=== PATIENT | male | born 1955 | race Caucasian/White ===

== ENCOUNTER 2020-09-25 13:43 | Emergency (ER) | payer MEDICARE, OTHER ==
[2020-09-25 14:36] LABS: #Eosinphils 0.1 10x3/uL (0.0-0.5); #Monocytes 0.8 10x3/uL (0.0-1.1); #Neutrophils 6.5 10x3/uL (1.5-8.4); %Basophils 0.3 % (0.0-2.0); %Eosinophils 1.3 % (0.0-6.0); %Monocytes 9.2 % (0.0-10.0); %Neutrophils 73.7 % (40.0-75.0); Hemoglobin 14.2 g/dL (13.5-17.5); Mean Corpuscular HGB CONC 34.1 g/dL (32.0-36.0); Mean Corpuscular Hemoglobin 31.1 pg (27.0-33.0); Mean Corpuscular Volume 91.2 fl (81.2-95.1); Mean Platelet Volume 11.4 fl (7.4-10.4); Platelet Count 188 10x3/uL (150-450); RBC Distribution Width 13.2 % (11.5-14.5); Red Blood Cell (RBC) Count 4.57 10x6/uL (4.32-5.72); White Blood Cell (WBC) Count 8.7 10x3/uL (3.5-10.5)
[2020-09-25] MEDS ORDERED: Ondansetron PF 4 MG/2 ML Vial ONE (14:57)
[2020-09-25] MEDS ORDERED: Morphine 1 ML ONE (14:58)
[2020-09-25 15:01] LABS: ALT (SGPT) 21 U/L (8-55); AST (SGOT) 17 U/L (5-34); Albumin 4.2 g/dL (3.4-4.8); Alkaline Phosphatase 73 U/L (40-110); Anion Gap 13 mmol/L (10-20); BUN (Urea Nitrogen) 16 mg/dL (8.4-25.7); Bilirubin, Total 0.6 mg/dL (0.2-1.2); Calc. Creatinine Clearance 0 mL/min (70-130); Calcium 9.6 mg/dL (7.8-10.44); Carbon Dioxide 26 mmol/L (23-31); Chloride 105 mmol/L (98-107); Globulin 2.2 g/dL (2.4-3.5); Glucose 146 mg/dL (80-115); Potassium 4.1 mmol/L (3.5-5.1); Protein, Total 6.4 g/dL (5.8-8.1); Sodium 140 mmol/L (136-145)
[2020-09-25 17:38] LABS: Troponin I 0.025 ng/mL (< 0.028)
[2020-09-25] MEDS ORDERED: HYDROcodone/Acetaminophen 5/325 mg Tablet ONE (18:12)
== END 2020-09-25 18:31 | disposition home or self-care (01) ==
LOC: CSHERS 13:43
DX: S09.90XA Unspecified injury of head, initial encounter (principal); M54.5 Low back pain; M79.671 Pain in right foot; I10 Essential (primary) hypertension; E78.5 Hyperlipidemia, unspecified; M10.9 Gout, unspecified; I48.91 Unspecified atrial fibrillation; Z79.01 Long term (current) use of anticoagulants; Z79.899 Other long term (current) drug therapy; W19.XXXA Unspecified fall, initial encounter
CPT/HCPCS: 70450; 71045; 72131; 80053; 82553; 84484; 85025; 93005; 96374; 96375; J2270; J2405

== ENCOUNTER 2021-02-22 14:08 | Inpatient (IN) | payer MEDICARE ==
[2021-02-22 15:04] LABS: #Eosinphils 0.1 10x3/uL (0.0-0.5); #Monocytes 0.9 10x3/uL (0.0-1.1); #Neutrophils 7.1 10x3/uL (1.5-8.4); %Basophils 0.3 % (0.0-2.0); %Eosinophils 1.1 % (0.0-6.0); %Lymphocytes 15.4 % (18.0-47.0); %Monocytes 8.9 % (0.0-10.0); %Neutrophils 73.9 % (40.0-75.0); Hemoglobin 12.8 g/dL (13.5-17.5); Mean Corpuscular HGB CONC 32.2 g/dL (32.0-36.0); Mean Corpuscular Hemoglobin 30.3 pg (27.0-33.0); Mean Corpuscular Volume 94.3 fl (81.2-95.1); Mean Platelet Volume 11.3 fl (7.4-10.4); Platelet Count 147 10x3/uL (150-450); RBC Distribution Width 14.3 % (11.5-14.5); Red Blood Cell (RBC) Count 4.22 10x6/uL (4.32-5.72); White Blood Cell (WBC) Count 9.6 10x3/uL (3.5-10.5)
[2021-02-22 15:16] LABS: ALT (SGPT) 36 U/L (8-55); AST (SGOT) 25 U/L (5-34); Alkaline Phosphatase 60 U/L (40-110); Anion Gap 14 mmol/L (10-20); BUN (Urea Nitrogen) 14 mg/dL (8.4-25.7); Bilirubin, Total 1.4 mg/dL (0.2-1.2); Calc. Creatinine Clearance 0 mL/min (70-130); Calcium 9.5 mg/dL (7.8-10.44); Carbon Dioxide 25 mmol/L (23-31); Chloride 105 mmol/L (98-107); Globulin 2.4 g/dL (2.4-3.5); Glucose 159 mg/dL (80-115); Potassium 4.2 mmol/L (3.5-5.1); Protein, Total 6.4 g/dL (5.8-8.1); Sodium 140 mmol/L (136-145)
[2021-02-22 16:20] LABS: CKMB 1.1 ng/mL (0-6.6)
[2021-02-22] MEDS ORDERED: Furosemide 100 MG/10 ML VIAL ONE (16:21)
[2021-02-22] MEDS ORDERED: Aspirin Chewable 81 MG TAB ONE (16:21)
[2021-02-22] MEDS ORDERED: Nitroglycerin 2% Ointment 1 INCH/1 GM Packet ONE (16:22)
[2021-02-22] MEDS ORDERED: Furosemide 40 MG/4 ML VIAL ONE (16:24)
[2021-02-22] MEDS ORDERED: Midodrine HCl 2.5 MG TAB PO PRN (17:18)
[2021-02-22] MEDS ORDERED: Ondansetron PF 4 MG/2 ML Vial IVP PRN (17:20)
[2021-02-22 18:11] LABS: Troponin I 0.554 ng/mL (< 0.028)
[2021-02-22 19:06] LABS: SARS-CoV-2 NAA Rapid Test Not Detected (NotDetected)
[2021-02-22 21:24] VITALS: BMI 43.3
[2021-02-22] MEDS ORDERED: Magnesium Oxide 250 MG TAB PO SCH (21:45)
[2021-02-22] MEDS ORDERED: Rosuvastatin 20 MG TAB PO SCH (21:45)
[2021-02-22] MEDS ORDERED: Metoprolol Tartrate 50 MG TAB PO SCH (21:45)
[2021-02-22] MEDS ORDERED: Apixaban 5 MG TAB PO SCH (21:45)
[2021-02-22] MEDS ORDERED: Amitriptyline HCl 10 MG TAB PO SCH (21:45)
[2021-02-22] MEDS ORDERED: Famotidine 20 MG TAB PO SCH (21:45)
[2021-02-22 21:47] LABS: Troponin I 0.453 ng/mL (< 0.028)
[2021-02-22] MEDS: Acetaminophen 325 MG TAB PO PRN (21:53)
[2021-02-23 05:18] LABS: #Eosinphils 0.2 10x3/uL (0.0-0.5); #Monocytes 0.8 10x3/uL (0.0-1.1); #Neutrophils 4.7 10x3/uL (1.5-8.4); %Basophils 0.3 % (0.0-2.0); %Eosinophils 2.6 % (0.0-6.0); %Monocytes 11.3 % (0.0-10.0); %Neutrophils 63.4 % (40.0-75.0); Hemoglobin 11.6 g/dL (13.5-17.5); Mean Corpuscular HGB CONC 32.4 g/dL (32.0-36.0); Mean Corpuscular Hemoglobin 30.3 pg (27.0-33.0); Mean Corpuscular Volume 93.5 fl (81.2-95.1); Mean Platelet Volume 11.1 fl (7.4-10.4); Platelet Count 129 10x3/uL (150-450); RBC Distribution Width 14.2 % (11.5-14.5); Red Blood Cell (RBC) Count 3.83 10x6/uL (4.32-5.72); White Blood Cell (WBC) Count 7.4 10x3/uL (3.5-10.5)
[2021-02-23 05:24] LABS: Anion Gap 12 mmol/L (10-20); BUN (Urea Nitrogen) 15 mg/dL (8.4-25.7); Calc. Creatinine Clearance 175 mL/min (70-130); Calcium 9.7 mg/dL (7.8-10.44); Carbon Dioxide 26 mmol/L (23-31); Chloride 105 mmol/L (98-107); Glucose 73 mg/dL (80-115); Potassium 3.7 mmol/L (3.5-5.1); Sodium 139 mmol/L (136-145)
[2021-02-23] MEDS: Levothyroxine Sodium 25 MCG TAB PO SCH (05:39)
[2021-02-23] MEDS: Furosemide 40 MG/4 ML VIAL SLOW IVP SCH ×2 (05:39→14:37)
[2021-02-23] MEDS: Apixaban 5 MG TAB PO SCH ×2 (09:13→21:49)
[2021-02-23] MEDS: Potassium Chloride 20 MEQ TAB PO SCH ×2 (09:13→17:25)
[2021-02-23] MEDS: Clopidogrel Bisulfate 75 MG TAB PO SCH (09:13)
[2021-02-23] MEDS: Magnesium Oxide 250 MG TAB PO SCH ×2 (09:13→21:47)
[2021-02-23] MEDS: Allopurinol 100 MG TAB PO SCH (09:13)
[2021-02-23] MEDS: Digoxin 0.125 MG TAB PO SCH (09:13)
[2021-02-23] MEDS: Ezetimibe 10 MG TAB PO SCH (09:13)
[2021-02-23] MEDS: Famotidine 20 MG TAB PO SCH ×2 (09:14→21:49)
[2021-02-23] MEDS: Metoprolol Tartrate 50 MG TAB PO SCH ×2 (09:14→21:49)
[2021-02-23] MEDS: Acetaminophen 325 MG TAB PO PRN ×2 (09:21→21:48)
[2021-02-23] MEDS: Rosuvastatin 20 MG TAB PO SCH (21:49)
[2021-02-23] MEDS: Amitriptyline HCl 10 MG TAB PO SCH (21:49)
[2021-02-24 06:18] LABS: #Eosinphils 0.3 10x3/uL (0.0-0.5); #Monocytes 0.6 10x3/uL (0.0-1.1); #Neutrophils 3.9 10x3/uL (1.5-8.4); %Basophils 0.5 % (0.0-2.0); %Eosinophils 4.1 % (0.0-6.0); %Lymphocytes 22.9 % (18.0-47.0); %Monocytes 9.7 % (0.0-10.0); %Neutrophils 62.3 % (40.0-75.0); Hemoglobin 12.8 g/dL (13.5-17.5); Mean Corpuscular HGB CONC 33.9 g/dL (32.0-36.0); Mean Corpuscular Hemoglobin 30.3 pg (27.0-33.0); Mean Corpuscular Volume 89.6 fl (81.2-95.1); Mean Platelet Volume 10.9 fl (7.4-10.4); Platelet Count 143 10x3/uL (150-450); RBC Distribution Width 14.3 % (11.5-14.5); Red Blood Cell (RBC) Count 4.22 10x6/uL (4.32-5.72); White Blood Cell (WBC) Count 6.3 10x3/uL (3.5-10.5)
[2021-02-24] MEDS: Furosemide 40 MG/4 ML VIAL SLOW IVP SCH ×2 (06:34→15:27)
[2021-02-24] MEDS: Levothyroxine Sodium 25 MCG TAB PO SCH (06:34)
[2021-02-24 06:58] LABS: Anion Gap 13 mmol/L (10-20); BUN (Urea Nitrogen) 16 mg/dL (8.4-25.7); Calc. Creatinine Clearance 162 mL/min (70-130); Calcium 9.9 mg/dL (7.8-10.44); Carbon Dioxide 26 mmol/L (23-31); Chloride 105 mmol/L (98-107); Glucose 99 mg/dL (80-115); Magnesium 2.2 mg/dL (1.6-2.6); Potassium 3.8 mmol/L (3.5-5.1); Sodium 140 mmol/L (136-145)
[2021-02-24] MEDS: Digoxin 0.125 MG TAB PO SCH (08:25)
[2021-02-24] MEDS: Potassium Chloride 20 MEQ TAB PO SCH (08:25)
[2021-02-24] MEDS: Ezetimibe 10 MG TAB PO SCH (08:25)
[2021-02-24] MEDS: Magnesium Oxide 250 MG TAB PO SCH ×2 (08:25→20:25)
[2021-02-24] MEDS: Allopurinol 100 MG TAB PO SCH (08:25)
[2021-02-24] MEDS: Famotidine 20 MG TAB PO SCH ×2 (08:25→20:25)
[2021-02-24] MEDS: Metoprolol Tartrate 50 MG TAB PO SCH ×2 (08:26→20:25)
[2021-02-24] MEDS: Clopidogrel Bisulfate 75 MG TAB PO SCH (08:26)
[2021-02-24] MEDS: Apixaban 5 MG TAB PO SCH (08:26)
[2021-02-24] MEDS ORDERED: Apixaban 2.5 MG TAB PO SCH (11:00)
[2021-02-24] MEDS ORDERED: Clopidogrel Bisulfate 75 MG TAB PO SCH (11:00)
[2021-02-24] MEDS ORDERED: Ketorolac Tromethamine 30 MG/ML VIAL IVP SCH (11:00)
[2021-02-24] MEDS: Amitriptyline HCl 10 MG TAB PO SCH (20:24)
[2021-02-24] MEDS: Apixaban 2.5 MG TAB PO SCH (20:25)
[2021-02-24] MEDS: Rosuvastatin 20 MG TAB PO SCH (20:25)
[2021-02-24] MEDS ORDERED: Apixaban 5 MG TAB PO SCH (21:00)
[2021-02-25 04:54] LABS: #Eosinphils 0.4 10x3/uL (0.0-0.5); #Monocytes 0.8 10x3/uL (0.0-1.1); #Neutrophils 5.3 10x3/uL (1.5-8.4); %Basophils 0.2 % (0.0-2.0); %Eosinophils 4.2 % (0.0-6.0); %Lymphocytes 21.9 % (18.0-47.0); %Monocytes 9.1 % (0.0-10.0); %Neutrophils 64.1 % (40.0-75.0); Hemoglobin 13.4 g/dL (13.5-17.5); Mean Corpuscular HGB CONC 32.7 g/dL (32.0-36.0); Mean Corpuscular Volume 91.7 fl (81.2-95.1); Mean Platelet Volume 10.9 fl (7.4-10.4); Platelet Count 161 10x3/uL (150-450); RBC Distribution Width 14.1 % (11.5-14.5); Red Blood Cell (RBC) Count 4.47 10x6/uL (4.32-5.72); White Blood Cell (WBC) Count 8.3 10x3/uL (3.5-10.5)
[2021-02-25 05:07] LABS: Anion Gap 14 mmol/L (10-20); BUN (Urea Nitrogen) 23 mg/dL (8.4-25.7); Calc. Creatinine Clearance 134 mL/min (70-130); Carbon Dioxide 27 mmol/L (23-31); Chloride 104 mmol/L (98-107); Glucose 104 mg/dL (80-115); Magnesium 2.3 mg/dL (1.6-2.6); Potassium 3.8 mmol/L (3.5-5.1); Sodium 141 mmol/L (136-145)
[2021-02-25] MEDS: Furosemide 40 MG/4 ML VIAL SLOW IVP SCH (06:07)
[2021-02-25] MEDS: Levothyroxine Sodium 25 MCG TAB PO SCH (06:08)
[2021-02-25] MEDS ORDERED: Clopidogrel Bisulfate 75 MG TAB PO SCH (09:00)
[2021-02-25] MEDS ORDERED: Potassium Chloride 20 MEQ TAB PO SCH (09:15)
[2021-02-25] MEDS ORDERED: Ketorolac Tromethamine 30 MG/ML VIAL IVP SCH (10:15)
[2021-02-25] MEDS: Magnesium Oxide 250 MG TAB PO SCH ×2 (11:18→20:16)
[2021-02-25] MEDS: Metoprolol Tartrate 50 MG TAB PO SCH ×2 (11:18→20:17)
[2021-02-25] MEDS: Allopurinol 100 MG TAB PO SCH (11:18)
[2021-02-25] MEDS: Apixaban 2.5 MG TAB PO SCH ×2 (11:18→20:16)
[2021-02-25] MEDS: Digoxin 0.125 MG TAB PO SCH (11:19)
[2021-02-25] MEDS: Clopidogrel Bisulfate 75 MG TAB PO SCH (11:19)
[2021-02-25] MEDS: Spironolactone 25 MG TAB PO SCH (11:19)
[2021-02-25] MEDS: Famotidine 20 MG TAB PO SCH ×2 (11:20→20:17)
[2021-02-25] MEDS: Furosemide 20 MG TAB PO SCH (13:40)
[2021-02-25] MEDS: Rosuvastatin 20 MG TAB PO SCH (20:16)
[2021-02-25] MEDS: Amitriptyline HCl 10 MG TAB PO SCH (20:17)
[2021-02-25] MEDS: Colchicine 0.6 MG TAB PO SCH (20:17)
[2021-02-26 05:26] LABS: Anion Gap 13 mmol/L (10-20); BUN (Urea Nitrogen) 26 mg/dL (8.4-25.7); Calc. Creatinine Clearance 124 mL/min (70-130); Calcium 10.1 mg/dL (7.8-10.44); Carbon Dioxide 26 mmol/L (23-31); Chloride 106 mmol/L (98-107); Glucose 105 mg/dL (80-115); Magnesium 2.5 mg/dL (1.6-2.6); Potassium 4.1 mmol/L (3.5-5.1); Sodium 141 mmol/L (136-145)
[2021-02-26 05:39] LABS: #Eosinphils 0.4 10x3/uL (0.0-0.5); #Monocytes 0.9 10x3/uL (0.0-1.1); #Neutrophils 5.2 10x3/uL (1.5-8.4); %Basophils 0.4 % (0.0-2.0); %Eosinophils 4.8 % (0.0-6.0); %Lymphocytes 22.6 % (18.0-47.0); %Monocytes 10.8 % (0.0-10.0); Hemoglobin 14.4 g/dL (13.5-17.5); Mean Corpuscular HGB CONC 32.7 g/dL (32.0-36.0); Mean Corpuscular Hemoglobin 30.1 pg (27.0-33.0); Mean Corpuscular Volume 91.9 fl (81.2-95.1); Mean Platelet Volume 10.8 fl (7.4-10.4); Platelet Count 178 10x3/uL (150-450); RBC Distribution Width 14.1 % (11.5-14.5); Red Blood Cell (RBC) Count 4.79 10x6/uL (4.32-5.72); White Blood Cell (WBC) Count 8.4 10x3/uL (3.5-10.5)
[2021-02-26] MEDS: Levothyroxine Sodium 25 MCG TAB PO SCH (06:08)
[2021-02-26] MEDS: Acetaminophen 325 MG TAB PO PRN ×2 (07:11→11:00)
[2021-02-26] MEDS: Ezetimibe 10 MG TAB PO SCH (10:21)
[2021-02-26] MEDS: Furosemide 20 MG TAB PO SCH ×2 (10:21→13:30)
[2021-02-26] MEDS: Clopidogrel Bisulfate 75 MG TAB PO SCH (10:21)
[2021-02-26] MEDS: Apixaban 2.5 MG TAB PO SCH (10:21)
[2021-02-26] MEDS: Digoxin 0.125 MG TAB PO SCH (10:21)
[2021-02-26] MEDS: Metoprolol Tartrate 50 MG TAB PO SCH ×2 (10:21→13:30)
[2021-02-26] MEDS: Famotidine 20 MG TAB PO SCH (10:22)
[2021-02-26] MEDS: Colchicine 0.6 MG TAB PO SCH (10:22)
[2021-02-26] MEDS: Spironolactone 25 MG TAB PO SCH (10:22)
[2021-02-26] MEDS: Allopurinol 100 MG TAB PO SCH (10:22)
[2021-02-26] MEDS: Magnesium Oxide 250 MG TAB PO SCH (10:23)
[2021-02-26 16:54] VITALS: BP 95/66; TEMP 98.3
[2021-02-26] MEDS ORDERED: Colchicine 0.6 MG TAB PO SCH (21:00)
== END 2021-02-26 18:09 | disposition home or self-care (01) | DRG 291 ==
LOC: CSHERS 14:08 → CSHTELE 19:48
PROVIDERS: ADMIT Family Medicine; ATTEND Internal Medicine
DX: I11.0 Hypertensive heart disease with heart failure (principal); J96.01 Acute respiratory failure with hypoxia; Z68.41 Body mass index [BMI] 40.0-44.9, adult; I50.41 Acute combined systolic (congestive) and diastolic (congestive) heart failure; E78.5 Hyperlipidemia, unspecified; E03.9 Hypothyroidism, unspecified; M10.9 Gout, unspecified; I25.10 Atherosclerotic heart disease of native coronary artery without angina pectoris; Z20.822 Contact with and (suspected) exposure to COVID-19; Z95.5 Presence of coronary angioplasty implant and graft; Z90.89 Acquired absence of other organs; Z90.49 Acquired absence of other specified parts of digestive tract; Z79.01 Long term (current) use of anticoagulants; Z79.890 Hormone replacement therapy; Z79.899 Other long term (current) drug therapy; R77.8 Other specified abnormalities of plasma proteins; I73.9 Peripheral vascular disease, unspecified; E78.2 Mixed hyperlipidemia; I48.0 Paroxysmal atrial fibrillation; G47.33 Obstructive sleep apnea (adult) (pediatric); R04.0 Epistaxis; F32.9 Major depressive disorder, single episode, unspecified; E66.01 Morbid (severe) obesity due to excess calories; I25.5 Ischemic cardiomyopathy; R19.7 Diarrhea, unspecified
CPT/HCPCS: 0240U; 36415; 71045; 80048; 80053; 82553; 83735; 83880; 84443; 84484; 85025; 93005; 93010; 93306; 94760; 96374; 97139; J1885; J1940

== ENCOUNTER 2021-11-02 22:47 | Inpatient (IN) | payer MEDICARE ==
[2021-11-02] MEDS ORDERED: Nitroglycerin 2% Ointment 1 INCH/1 GM Packet ONE (23:33)
[2021-11-02] MEDS ORDERED: Aspirin Chewable 81 MG TAB ONE (23:33)
[2021-11-02] MEDS ORDERED: Fentanyl 100 MCG/2 ML VIAL ONE (23:33)
[2021-11-03 00:33] LABS: ALT (SGPT) 39 U/L (8-55); AST (SGOT) 29 U/L (5-34); Alkaline Phosphatase 103 U/L (40-110); Anion Gap 12 mmol/L (10-20); BUN (Urea Nitrogen) 9 mg/dL (8.4-25.7); Bilirubin, Total 0.4 mg/dL (0.2-1.2); CK (CPK) 121 U/L (30-200); Calc. Creatinine Clearance 0 mL/min (70-130); Calcium 9.5 mg/dL (7.8-10.44); Carbon Dioxide 24 mmol/L (23-31); Chloride 106 mmol/L (98-107); Globulin 2.1 g/dL (2.4-3.5); Glucose 178 mg/dL (80-115); Lipase 35 U/L (8-78); Potassium 3.7 mmol/L (3.5-5.1); Protein, Total 6.1 g/dL (5.8-8.1); Sodium 138 mmol/L (136-145)
[2021-11-03 00:34] LABS: #Eosinphils 0.3 10x3/uL (0.0-0.5); #Monocytes 0.6 10x3/uL (0.0-1.1); #Neutrophils 4.5 10x3/uL (1.5-8.4); %Basophils 0.3 % (0.0-2.0); %Eosinophils 4.1 % (0.0-6.0); %Lymphocytes 23.8 % (18.0-47.0); %Monocytes 8.7 % (0.0-10.0); %Neutrophils 62.8 % (40.0-75.0); Hemoglobin 15.1 g/dL (13.5-17.5); Mean Corpuscular HGB CONC 34.1 g/dL (32.0-36.0); Mean Corpuscular Hemoglobin 30.6 pg (27.0-33.0); Mean Corpuscular Volume 89.7 fl (81.2-95.1); Mean Platelet Volume 11.2 fl (7.4-10.4); Platelet Count 159 10x3/uL (150-450); RBC Distribution Width 13.2 % (11.5-14.5); Red Blood Cell (RBC) Count 4.94 10x6/uL (4.32-5.72); White Blood Cell (WBC) Count 7.1 10x3/uL (3.5-10.5)
[2021-11-03] MEDS ORDERED: Acetaminophen 500 MG TAB ONE (00:34)
[2021-11-03 00:58] LABS: CKMB 2.5 ng/mL (0-6.6)
[2021-11-03 02:01] LABS: SARS-CoV-2 NAA Rapid Test Not Detected (NotDetected)
[2021-11-03 02:53] VITALS: BMI 42.0
[2021-11-03] MEDS ORDERED: Nitroglycerin 0.4 MG TAB (25 Tab Bottle) SL PRN (02:53)
[2021-11-03] MEDS ORDERED: Ketorolac Tromethamine 30 MG/ML VIAL IVP SCH (03:00)
[2021-11-03] MEDS ORDERED: Metoclopramide HCl 10 MG/2 ML VIAL IVP SCH (03:00)
[2021-11-03] MEDS ORDERED: diphenhydrAMINE 50 MG/ML VIAL IVP SCH (03:00)
[2021-11-03 03:58] LABS: Cardiac Risk 4.8 (Less than 4.5)
[2021-11-03 04:04] LABS: Troponin I 0.022 ng/mL (< 0.028)
[2021-11-03] MEDS: Levothyroxine Sodium 25 MCG TAB PO SCH (05:23)
[2021-11-03] MEDS ORDERED: Nitroglycerin 2% Ointment 1 INCH/1 GM Packet TOP SCH (06:00)
[2021-11-03 06:22] LABS: Troponin I 0.018 ng/mL (< 0.028)
[2021-11-03] MEDS ORDERED: ALPRAZolam 0.5 MG TAB PO PRN (08:08)
[2021-11-03] MEDS ORDERED: Pantoprazole 40 MG VIAL ONE (08:42)
[2021-11-03] MEDS: Furosemide 20 MG TAB PO SCH ×2 (08:48→15:18)
[2021-11-03] MEDS: Spironolactone 25 MG TAB PO SCH (08:48)
[2021-11-03] MEDS: Clopidogrel Bisulfate 75 MG TAB PO SCH (08:48)
[2021-11-03] MEDS: Ezetimibe 10 MG TAB PO SCH (08:49)
[2021-11-03] MEDS: Metoprolol Tartrate 50 MG TAB PO SCH ×2 (08:49→21:23)
[2021-11-03] MEDS: Allopurinol 100 MG TAB PO SCH (08:49)
[2021-11-03] MEDS: Potassium Chloride 20 MEQ TAB PO SCH (08:50)
[2021-11-03] MEDS: Digoxin 0.125 MG TAB PO SCH (08:50)
[2021-11-03] MEDS: Pantoprazole 40 MG VIAL IVP SCH ×2 (08:52→21:23)
[2021-11-03] MEDS ORDERED: Apixaban 2.5 MG TAB PO SCH (09:00)
[2021-11-03] MEDS ORDERED: Aspirin Chewable 81 MG TAB PO SCH (09:00)
[2021-11-03 11:19] LABS: Hemoglobin 14.3 g/dL (13.5-17.5)
[2021-11-03 11:57] LABS: Digoxin Less than 0.15 ng/mL (0.8-2.0)
[2021-11-03 12:26] LABS: Anion Gap 16 mmol/L (10-20); BUN (Urea Nitrogen) 10 mg/dL (8.4-25.7); Calc. Creatinine Clearance 157 mL/min (70-130); Calcium 9.3 mg/dL (7.8-10.44); Carbon Dioxide 21 mmol/L (23-31); Chloride 107 mmol/L (98-107); Glucose 172 mg/dL (80-115); Potassium 4.4 mmol/L (3.5-5.1); Sodium 140 mmol/L (136-145)
[2021-11-03] MEDS: Prochlorperazine Edisylate 10 MG, Admixture Fee 1 EACH in Sodium Chloride 0.9% 50 ML IVPB SCH ×2 (15:17→21:26)
[2021-11-03] MEDS: diphenhydrAMINE 50 MG/ML VIAL IVP SCH ×2 (15:18→21:24)
[2021-11-03 16:56] LABS: Hemoglobin A1c 5.7 % (4.0-6.0)
[2021-11-03] MEDS ORDERED: Acetaminophen 650 MG/20.3 ML UDCUP PO PRN (18:17)
[2021-11-03] MEDS: Acetaminophen 325 MG TAB PO PRN (19:19)
[2021-11-03] MEDS ORDERED: Rosuvastatin 20 MG TAB PO SCH (21:00)
[2021-11-03] MEDS: Amitriptyline HCl 10 MG TAB PO SCH (21:23)
[2021-11-04] MEDS: diphenhydrAMINE 50 MG/ML VIAL IVP SCH ×2 (02:24→08:15)
[2021-11-04] MEDS: Prochlorperazine Edisylate 10 MG, Admixture Fee 1 EACH in Sodium Chloride 0.9% 50 ML IVPB SCH ×2 (02:24→08:15)
[2021-11-04 04:36] LABS: Hemoglobin 15.1 g/dL (13.5-17.5); Mean Corpuscular HGB CONC 33.3 g/dL (32.0-36.0); Mean Corpuscular Hemoglobin 30.4 pg (27.0-33.0); Mean Corpuscular Volume 91.5 fl (81.2-95.1); Mean Platelet Volume 11.7 fl (7.4-10.4); Platelet Count 148 10x3/uL (150-450); RBC Distribution Width 13.2 % (11.5-14.5); Red Blood Cell (RBC) Count 4.96 10x6/uL (4.32-5.72); White Blood Cell (WBC) Count 7.6 10x3/uL (3.5-10.5)
[2021-11-04 04:54] LABS: Anion Gap 12 mmol/L (10-20); BUN (Urea Nitrogen) 7 mg/dL (8.4-25.7); Calc. Creatinine Clearance 158 mL/min (70-130); Calcium 9.2 mg/dL (7.8-10.44); Carbon Dioxide 24 mmol/L (23-31); Chloride 108 mmol/L (98-107); Glucose 140 mg/dL (80-115); Potassium 4.4 mmol/L (3.5-5.1); Sodium 140 mmol/L (136-145)
[2021-11-04] MEDS: Levothyroxine Sodium 25 MCG TAB PO SCH (06:15)
[2021-11-04] MEDS: Furosemide 20 MG TAB PO SCH ×2 (08:11→14:36)
[2021-11-04] MEDS: Potassium Chloride 20 MEQ TAB PO SCH (08:11)
[2021-11-04] MEDS: Aspirin 81 mg Enteric Coated Tablet PO SCH (08:12)
[2021-11-04] MEDS: Ezetimibe 10 MG TAB PO SCH (08:12)
[2021-11-04] MEDS: Metoprolol Tartrate 50 MG TAB PO SCH ×2 (08:13→21:54)
[2021-11-04] MEDS: Acetaminophen 325 MG TAB PO PRN (08:13)
[2021-11-04] MEDS: Digoxin 0.125 MG TAB PO SCH (08:13)
[2021-11-04] MEDS: Pantoprazole 40 MG VIAL IVP SCH (08:16)
[2021-11-04] MEDS: Allopurinol 100 MG TAB PO SCH (08:27)
[2021-11-04] MEDS: Clopidogrel Bisulfate 75 MG TAB PO SCH (08:27)
[2021-11-04] MEDS ORDERED: HYDROcodone/Acetaminophen 5/325 mg Tablet PO PRN (08:29)
[2021-11-04] MEDS: HYDROcodone/Acetaminophen 10/325 mg Tablet PO PRN ×3 (09:55→21:55)
[2021-11-04] MEDS: Rosuvastatin 20 MG TAB PO SCH (21:53)
[2021-11-04] MEDS: Amitriptyline HCl 10 MG TAB PO SCH (21:54)
[2021-11-05] MEDS: Levothyroxine Sodium 25 MCG TAB PO SCH (06:14)
[2021-11-05] MEDS: Spironolactone 25 MG TAB PO SCH (09:25)
[2021-11-05] MEDS: Ezetimibe 10 MG TAB PO SCH (09:25)
[2021-11-05] MEDS: Allopurinol 100 MG TAB PO SCH (09:25)
[2021-11-05] MEDS: Digoxin 0.125 MG TAB PO SCH (09:25)
[2021-11-05] MEDS: Aspirin 81 mg Enteric Coated Tablet PO SCH (09:25)
[2021-11-05] MEDS: Potassium Chloride 20 MEQ TAB PO SCH (09:25)
[2021-11-05] MEDS: Metoprolol Tartrate 50 MG TAB PO SCH ×2 (09:26→20:59)
[2021-11-05] MEDS: Clopidogrel Bisulfate 75 MG TAB PO SCH (09:26)
[2021-11-05] MEDS: Furosemide 20 MG TAB PO SCH ×2 (09:26→13:46)
[2021-11-05 13:11] LABS: Anion Gap 11 mmol/L (10-20); BUN (Urea Nitrogen) 12 mg/dL (8.4-25.7); Calc. Creatinine Clearance 140 mL/min (70-130); Calcium 9.9 mg/dL (7.8-10.44); Carbon Dioxide 30 mmol/L (23-31); Chloride 102 mmol/L (98-107); Glucose 109 mg/dL (80-115); Potassium 4.1 mmol/L (3.5-5.1); Sodium 139 mmol/L (136-145)
[2021-11-05] MEDS ORDERED: Milk Of Magnesia 30 ML UDCUP PO PRN (14:29)
[2021-11-05] MEDS ORDERED: Bisacodyl 10 MG SUPP PR PRN (14:29)
[2021-11-05] MEDS ORDERED: Milk Of Magnesia 30 ML UDCUP PO SCH (15:00)
[2021-11-05] MEDS: HYDROcodone/Acetaminophen 10/325 mg Tablet PO PRN ×2 (16:13→21:00)
[2021-11-05 16:42] LABS: Bilirubin Neg (Negative); Blood, Urine Negative (Negative); Clarity Clear (Clear); Glucose, Urine (Dipstick) Normal (Negative); Ketone, Urine Negative (Negative); Leukocyte Negative (Negative); Nitrite Negative (Negative); Protein, Urine (Dipstick) Negative (Neg-Trace); Specific Gravity, Urine 1.015 (1.002-1.036); Urobilinogen Normal mg/dL (Less than 2); pH, Urine 6.5 (5.0-9.0)
[2021-11-05 16:46] LABS: Urine Culture Reflex No No
[2021-11-05 17:00] LABS: Bacteria/HPF 2+ HPF (None Seen); RBC/HPF 0-3 HPF (0-3); Squamous Epithelial 0-3 HPF (0-3); WBC/HPF 0-3 HPF (0-3)
[2021-11-05] MEDS: Amitriptyline HCl 10 MG TAB PO SCH (20:59)
[2021-11-05] MEDS ORDERED: Tamsulosin HCl 0.4 MG CAP PO SCH (21:00)
[2021-11-05] MEDS: Rosuvastatin 20 MG TAB PO SCH (21:00)
[2021-11-05] MEDS: Senokot S 8.6-50 MG TAB PO SCH (21:00)
[2021-11-06] MEDS: Levothyroxine Sodium 25 MCG TAB PO SCH (05:58)
[2021-11-06] MEDS: Spironolactone 25 MG TAB PO SCH (08:42)
[2021-11-06] MEDS: Potassium Chloride 20 MEQ TAB PO SCH (08:42)
[2021-11-06] MEDS: Aspirin 81 mg Enteric Coated Tablet PO SCH (08:42)
[2021-11-06] MEDS: Allopurinol 100 MG TAB PO SCH (08:42)
[2021-11-06] MEDS: Digoxin 0.125 MG TAB PO SCH (08:43)
[2021-11-06] MEDS: Furosemide 20 MG TAB PO SCH ×2 (08:43→16:28)
[2021-11-06] MEDS: Senokot S 8.6-50 MG TAB PO SCH (08:43)
[2021-11-06] MEDS: Clopidogrel Bisulfate 75 MG TAB PO SCH (08:43)
[2021-11-06] MEDS: Ezetimibe 10 MG TAB PO SCH (08:43)
[2021-11-06] MEDS: HYDROcodone/Acetaminophen 10/325 mg Tablet PO PRN (16:29)
[2021-11-06 17:43] VITALS: BP 131/79; TEMP 97.4
[2021-11-06] MEDS ORDERED: Metoprolol Tartrate 25 MG TAB PO SCH (21:00)
== END 2021-11-06 18:15 | DRG 64 ==
LOC: CSHERS 22:47 → OBSVTOIN 11-03 01:59 → CSHTELE 11-03 01:59
PROVIDERS: ADMIT Family Medicine; ATTEND Internal Medicine
DX: I63.9 Cerebral infarction, unspecified (principal); I50.43 Acute on chronic combined systolic (congestive) and diastolic (congestive) heart failure; Z68.41 Body mass index [BMI] 40.0-44.9, adult; I24.8 Other forms of acute ischemic heart disease; I25.10 Atherosclerotic heart disease of native coronary artery without angina pectoris; I11.0 Hypertensive heart disease with heart failure; Z20.822 Contact with and (suspected) exposure to COVID-19; G44.1 Vascular headache, not elsewhere classified; E66.9 Obesity, unspecified; K21.9 Gastro-esophageal reflux disease without esophagitis; E78.2 Mixed hyperlipidemia; E66.01 Morbid (severe) obesity due to excess calories; R33.9 Retention of urine, unspecified; G47.33 Obstructive sleep apnea (adult) (pediatric); I25.5 Ischemic cardiomyopathy; R13.10 Dysphagia, unspecified; M10.9 Gout, unspecified; K59.00 Constipation, unspecified; R73.03 Prediabetes; I73.9 Peripheral vascular disease, unspecified; I48.0 Paroxysmal atrial fibrillation; E03.9 Hypothyroidism, unspecified; Z95.5 Presence of coronary angioplasty implant and graft; I25.2 Old myocardial infarction; Z90.89 Acquired absence of other organs; Z90.49 Acquired absence of other specified parts of digestive tract
CPT/HCPCS: 36415; 70450; 70551; 71045; 74230; 80048; 80053; 80061; 80162; 81001; 82550; 82553; 83036; 83690; 83735; 83880; 84484; 85014; 85018; 85025; 85027; 85379; 85652; 87086; 93005; 93010; 93306; 93880; 96374; C9113; J0780; J1200; J1885; J2765; J3010; U0002

== ENCOUNTER 2022-09-14 19:42 | Inpatient (IN) | payer MEDICARE ==
[2022-09-14] MEDS ORDERED: Meclizine HCl 25 MG TAB ONE ×2 (20:33→20:35)
[2022-09-14 20:43] LABS: #Eosinphils 0.2 10x3/uL (0.0-0.5); #Monocytes 0.7 10x3/uL (0.0-1.1); #Neutrophils 3.9 10x3/uL (1.5-8.4); %Basophils 0.4 % (0.0-2.0); %Eosinophils 2.3 % (0.0-6.0); %Lymphocytes 29.8 % (18.0-47.0); %Monocytes 9.9 % (0.0-10.0); %Neutrophils 57.3 % (40.0-75.0); Hemoglobin 14.9 g/dL (13.5-17.5); Mean Corpuscular Hemoglobin 29.7 pg (27.0-33.0); Mean Corpuscular Volume 89.8 fl (81.2-95.1); Mean Platelet Volume 10.8 fl (7.4-10.4); Platelet Count 166 10x3/uL (150-450); RBC Distribution Width 13.5 % (11.5-14.5); Red Blood Cell (RBC) Count 5.02 10x6/uL (4.32-5.72); White Blood Cell (WBC) Count 6.9 10x3/uL (3.5-10.5)
[2022-09-14 20:52] LABS: ALT (SGPT) 42 U/L (8-55); AST (SGOT) 33 U/L (5-34); Albumin 4.1 g/dL (3.4-4.8); Alkaline Phosphatase 101 U/L (40-110); Anion Gap 13 mmol/L (10-20); BUN (Urea Nitrogen) 12 mg/dL (8.4-25.7); Bilirubin, Total 0.4 mg/dL (0.2-1.2); Calc. Creatinine Clearance 0 mL/min (70-130); Calcium 9.4 mg/dL (7.8-10.44); Carbon Dioxide 24 mmol/L (23-31); Chloride 108 mmol/L (98-107); Estimated GFR 67; Globulin 2.3 g/dL (2.4-3.5); Glucose 212 mg/dL (80-115); Potassium 4.1 mmol/L (3.5-5.1); Protein, Total 6.4 g/dL (5.8-8.1); Sodium 141 mmol/L (136-145)
[2022-09-14 21:12] LABS: CKMB 2.6 ng/mL (0-6.6)
[2022-09-14 22:40] LABS: Troponin I 0.037 ng/mL (< 0.028)
[2022-09-14] MEDS ORDERED: Diazepam 5 MG TAB ONE (23:13)
[2022-09-14] MEDS ORDERED: Calcium Carbonate 500 MG ChewTAB PO PRN (23:35)
[2022-09-14] MEDS ORDERED: Ondansetron PF 4 MG/2 ML Vial IVP PRN (23:35)
[2022-09-14] MEDS ORDERED: Senokot S 8.6-50 MG TAB PO PRN (23:35)
[2022-09-14] MEDS ORDERED: Meclizine HCl 12.5 MG TAB PO PRN (23:40)
[2022-09-14] MEDS ORDERED: Lactated Ringer's 500 ML IV SCH (23:45)
[2022-09-14] MEDS ORDERED: Amoxicillin/Potassium Clav 875 MG TAB PO SCH (23:59)
[2022-09-14] MEDS ORDERED: predniSONE 20 MG TAB PO SCH (23:59)
[2022-09-15 01:24] LABS: SARS-CoV-2 NAA Rapid Test Not Detected (NotDetected)
[2022-09-15 02:30] VITALS: BMI 46.5
[2022-09-15] MEDS: Acetaminophen 325 MG TAB PO PRN ×2 (03:40→20:32)
[2022-09-15 04:04] LABS: Anion Gap 11 mmol/L (10-20); BUN (Urea Nitrogen) 13 mg/dL (8.4-25.7); Calc. Creatinine Clearance 152 mL/min (70-130); Calcium 9.6 mg/dL (7.8-10.44); Carbon Dioxide 26 mmol/L (23-31); Chloride 107 mmol/L (98-107); Estimated GFR 89; Glucose 138 mg/dL (80-115); Potassium 4.2 mmol/L (3.5-5.1); Sodium 140 mmol/L (136-145)
[2022-09-15 04:05] LABS: Digoxin Less than 0.15 ng/mL (0.8-2.0)
[2022-09-15 04:27] LABS: CKMB 2.4 ng/mL (0-6.6)
[2022-09-15 04:42] LABS: Bilirubin Neg (Negative); Blood, Urine Negative (Negative); Clarity Hazy (Clear); Glucose, Urine (Dipstick) 100 mg/dL (Negative); Ketone, Urine 5 mg/dL (Negative); Leukocyte Negative (Negative); Nitrite Negative (Negative); Protein, Urine (Dipstick) 15 mg/dl (Neg-Trace); Specific Gravity, Urine 1.025 (1.005-1.030); Urobilinogen Normal mg/dL (Less than 2)
[2022-09-15 04:48] LABS: Calcium Oxalate Crystals 2+ HPF (None Seen); Mucous/LPF 1+ LPF (<2+); RBC/HPF None Seen HPF (0-3); Squamous Epithelial 0-3 HPF (0-3); WBC/HPF None Seen HPF (0-3)
[2022-09-15] MEDS: Levothyroxine Sodium 50 MCG TAB PO SCH (06:26)
[2022-09-15] MEDS: Midodrine HCl 2.5 MG TAB PO SCH ×3 (06:26→22:50)
[2022-09-15] MEDS: Ezetimibe 10 MG TAB PO SCH (08:45)
[2022-09-15] MEDS: Amoxicillin/Potassium Clav 875 MG TAB PO SCH ×2 (08:45→20:31)
[2022-09-15] MEDS: Magnesium Oxide 250 MG TAB PO SCH ×2 (08:46→20:30)
[2022-09-15] MEDS: Allopurinol 100 MG TAB PO SCH (08:46)
[2022-09-15] MEDS: Apixaban 2.5 MG TAB PO SCH ×2 (08:46→20:31)
[2022-09-15] MEDS: Metoprolol Tartrate 25 MG TAB PO SCH ×2 (08:46→20:31)
[2022-09-15] MEDS: Clopidogrel Bisulfate 75 MG TAB PO SCH (08:46)
[2022-09-15] MEDS: Famotidine 20 MG TAB PO SCH ×2 (08:46→20:31)
[2022-09-15] MEDS: Digoxin 0.125 MG TAB PO SCH (08:47)
[2022-09-15] MEDS ORDERED: Ciprofloxacin 0.3% Ophth Soln 2.5 ml Bottle R EAR SCH ×2 (13:00→21:00)
[2022-09-15] MEDS: Rosuvastatin 20 MG TAB PO SCH (20:30)
[2022-09-15] MEDS: Tamsulosin HCl 0.4 MG CAP PO SCH (20:30)
[2022-09-15] MEDS: Ciprofloxacin 0.3% Ophth Soln 2.5 ml Bottle R EAR SCH (20:32)
[2022-09-15] MEDS ORDERED: Nitroglycerin 0.4 MG TAB (25 Tab Bottle) ONE (23:18)
[2022-09-15] MEDS ORDERED: Nitroglycerin 0.4 MG TAB (25 Tab Bottle) SL PRN (23:35)
[2022-09-15] MEDS ORDERED: HYDROcodone/Acetaminophen 5/325 mg Tablet PO SCH (23:45)
[2022-09-15] MEDS ORDERED: Morphine 2 MG/ML VIAL SLOW IVP SCH (23:45)
[2022-09-16] MEDS: Midodrine HCl 2.5 MG TAB PO SCH ×3 (05:01→21:22)
[2022-09-16] MEDS: Levothyroxine Sodium 50 MCG TAB PO SCH (05:01)
[2022-09-16] MEDS: Apixaban 2.5 MG TAB PO SCH (08:12)
[2022-09-16] MEDS: Metoprolol Tartrate 25 MG TAB PO SCH ×2 (08:12→21:21)
[2022-09-16] MEDS: Digoxin 0.125 MG TAB PO SCH (08:13)
[2022-09-16] MEDS: Allopurinol 100 MG TAB PO SCH (08:13)
[2022-09-16] MEDS: Famotidine 20 MG TAB PO SCH ×2 (08:13→21:21)
[2022-09-16] MEDS: Magnesium Oxide 250 MG TAB PO SCH ×2 (08:14→21:21)
[2022-09-16] MEDS: Ezetimibe 10 MG TAB PO SCH (08:14)
[2022-09-16] MEDS: Clopidogrel Bisulfate 75 MG TAB PO SCH (08:14)
[2022-09-16] MEDS: Amoxicillin/Potassium Clav 875 MG TAB PO SCH ×2 (08:14→21:21)
[2022-09-16] MEDS: Ciprofloxacin 0.3% Ophth Soln 2.5 ml Bottle R EAR SCH ×2 (08:18→21:28)
[2022-09-16] MEDS ORDERED: Midodrine HCl 2.5 MG TAB PO SCH (11:15)
[2022-09-16] MEDS ORDERED: Spironolactone 25 MG TAB PO SCH (11:15)
[2022-09-16 11:36] LABS: #Eosinphils 0.2 10x3/uL (0.0-0.5); #Monocytes 0.5 10x3/uL (0.0-1.1); #Neutrophils 3.2 10x3/uL (1.5-8.4); %Basophils 0.5 % (0.0-2.0); %Eosinophils 2.7 % (0.0-6.0); %Lymphocytes 36.3 % (18.0-47.0); %Monocytes 7.7 % (0.0-10.0); %Neutrophils 52.3 % (40.0-75.0); Hemoglobin 14.5 g/dL (13.5-17.5); Mean Corpuscular HGB CONC 32.6 g/dL (32.0-36.0); Mean Corpuscular Hemoglobin 29.8 pg (27.0-33.0); Mean Corpuscular Volume 91.4 fl (81.2-95.1); Mean Platelet Volume 11.2 fl (7.4-10.4); Platelet Count 152 10x3/uL (150-450); RBC Distribution Width 13.4 % (11.5-14.5); Red Blood Cell (RBC) Count 4.87 10x6/uL (4.32-5.72)
[2022-09-16 12:06] LABS: Anion Gap 13 mmol/L (10-20); BUN (Urea Nitrogen) 13 mg/dL (8.4-25.7); Calc. Creatinine Clearance 135 mL/min (70-130); Calcium 9.3 mg/dL (7.8-10.44); Carbon Dioxide 23 mmol/L (23-31); Chloride 106 mmol/L (98-107); Estimated GFR 77; Glucose 158 mg/dL (80-115); Potassium 4.1 mmol/L (3.5-5.1); Sodium 138 mmol/L (136-145)
[2022-09-16 12:27] LABS: CKMB 1.7 ng/mL (0-6.6)
[2022-09-16] MEDS: Tamsulosin HCl 0.4 MG CAP PO SCH (21:21)
[2022-09-16] MEDS: Rosuvastatin 20 MG TAB PO SCH (21:23)
[2022-09-17] MEDS: Levothyroxine Sodium 50 MCG TAB PO SCH (06:01)
[2022-09-17] MEDS ORDERED: Spironolactone 25 MG TAB PO SCH (08:00)
[2022-09-17] MEDS: Metoprolol Tartrate 25 MG TAB PO SCH (08:14)
[2022-09-17] MEDS: Famotidine 20 MG TAB PO SCH (08:14)
[2022-09-17] MEDS: Digoxin 0.125 MG TAB PO SCH (08:14)
[2022-09-17] MEDS: Magnesium Oxide 250 MG TAB PO SCH (08:14)
[2022-09-17] MEDS: Allopurinol 100 MG TAB PO SCH (08:14)
[2022-09-17] MEDS: Amoxicillin/Potassium Clav 875 MG TAB PO SCH (08:15)
[2022-09-17] MEDS: HYDROcodone/Acetaminophen 5/325 mg Tablet PO PRN ×2 (08:15→16:08)
[2022-09-17] MEDS: Ezetimibe 10 MG TAB PO SCH (08:15)
[2022-09-17] MEDS: Clopidogrel Bisulfate 75 MG TAB PO SCH (08:16)
[2022-09-17] MEDS: Midodrine HCl 2.5 MG TAB PO SCH ×2 (08:16→16:12)
[2022-09-17] MEDS: Ciprofloxacin 0.3% Ophth Soln 2.5 ml Bottle R EAR SCH (08:23)
[2022-09-17] MEDS ORDERED: Lidocaine 1% (PF) 30 ML VIAL ONE (10:40)
[2022-09-17] MEDS ORDERED: Heparin 10,000 UNITS/ 10 ML VIAL ONE (10:41)
[2022-09-17] MEDS ORDERED: Adenosine 6 MG/2 ML VIAL ONE (10:41)
[2022-09-17] MEDS ORDERED: Nitroglycerin 50 MG/250 ML BOT 250 ML ONE (10:41)
[2022-09-17] MEDS ORDERED: Sodium Chloride 0.9% 1,000 ML ONE (10:45)
[2022-09-17] MEDS ORDERED: methylPREDNISolone Sod Succ/PF 125 MG/2 ML VIAL ONE (12:02)
[2022-09-17] MEDS ORDERED: Famotidine/PF 20 mg/2ml Vial ONE (12:03)
[2022-09-17] MEDS ORDERED: diphenhydrAMINE 50 MG/ML VIAL ONE (12:03)
[2022-09-17] MEDS ORDERED: Fentanyl 100 MCG/2 ML VIAL ONE (12:11)
[2022-09-17] MEDS ORDERED: Midazolam HCl 2 mg/2 ml Vial ONE (12:12)
[2022-09-17] MEDS ORDERED: Acetaminophen/Codeine 30-300mg Tablet PO PRN ×2 (13:49)
[2022-09-17] MEDS ORDERED: Sodium Chloride 0.9% 200 ML IV PRN (13:49)
[2022-09-17 15:34] VITALS: TEMP 97.4
[2022-09-17 19:55] VITALS: BP 124/78
== END 2022-09-17 19:50 | disposition home or self-care (01) | DRG 287 ==
LOC: CSHERS 19:42 → CSHTELE 23:35 → UNDOADMOB 09-15 00:03 → CSHTELE 09-15 00:03 → OBSVTOIN 09-15 15:43
PROVIDERS: ADMIT Student in an Organized Health Care Education/Training Program; ATTEND Hospitalist
PROC: 4A023N7 Measurement of Cardiac Sampling and Pressure, Left Heart, Percutaneous Approach (ICD-10-PCS; principal; 2022-09-17)
PROC: B2111ZZ Fluoroscopy of Multiple Coronary Arteries using Low Osmolar Contrast (ICD-10-PCS; 2022-09-17)
PROC: B2151ZZ Fluoroscopy of Left Heart using Low Osmolar Contrast (ICD-10-PCS; 2022-09-17)
DX: I95.1 Orthostatic hypotension (principal); I50.42 Chronic combined systolic (congestive) and diastolic (congestive) heart failure; I25.110 Atherosclerotic heart disease of native coronary artery with unstable angina pectoris; T43.015A Adverse effect of tricyclic antidepressants, initial encounter; I11.0 Hypertensive heart disease with heart failure; G47.33 Obstructive sleep apnea (adult) (pediatric); E66.01 Morbid (severe) obesity due to excess calories; R77.8 Other specified abnormalities of plasma proteins; E11.65 Type 2 diabetes mellitus with hyperglycemia; E03.9 Hypothyroidism, unspecified; E11.51 Type 2 diabetes mellitus with diabetic peripheral angiopathy without gangrene; G89.29 Other chronic pain; E78.2 Mixed hyperlipidemia; M1A.00X0 Idiopathic chronic gout, unspecified site, without tophus (tophi); I48.0 Paroxysmal atrial fibrillation; H66.91 Otitis media, unspecified, right ear; Z79.890 Hormone replacement therapy; Z79.899 Other long term (current) drug therapy; Z79.02 Long term (current) use of antithrombotics/antiplatelets; Z88.8 Allergy status to other drugs, medicaments and biological substances; Z95.5 Presence of coronary angioplasty implant and graft; Z86.73 Personal history of transient ischemic attack (TIA), and cerebral infarction without residual deficits; Z91.041 Radiographic dye allergy status; Z90.49 Acquired absence of other specified parts of digestive tract; Z90.89 Acquired absence of other organs; Z87.891 Personal history of nicotine dependence; Z98.1 Arthrodesis status
CPT/HCPCS: 36415; 70551; 71045; 80048; 80053; 80162; 81001; 82553; 83735; 84443; 84484; 85025; 85347; 93005; 93010; 93306; 93458; 94660; 94760; 97139; 99152; 99153; C1760; C1769; G0378; J0153; J1200; J1644; J2001; J2250; J2405; J2930; J3010; J7050; J7120; J7512; S0028; U0002

== ENCOUNTER 2023-03-03 20:26 | Observation (INO) | payer MEDICARE ==
[2023-03-03 21:20] LABS: #Eosinphils 0.1 10x3/uL (0.0-0.5); #Monocytes 0.7 10x3/uL (0.0-1.1); #Neutrophils 4.2 10x3/uL (1.5-8.4); %Basophils 0.1 % (0.0-2.0); %Eosinophils 1.9 % (0.0-6.0); %Lymphocytes 29.6 % (18.0-47.0); %Neutrophils 58.1 % (40.0-75.0); Hematocrit 41.6 % (38.8-50.0); Hemoglobin 14.3 g/dL (13.5-17.5); Mean Corpuscular HGB CONC 34.4 g/dL (32.0-36.0); Mean Corpuscular Hemoglobin 31.1 pg (27.0-33.0); Mean Corpuscular Volume 90.4 fl (81.2-95.1); Mean Platelet Volume 11.3 fl (7.4-10.4); Platelet Count 157 10x3/uL (150-450); RBC Distribution Width 13.7 % (11.5-14.5); White Blood Cell (WBC) Count 7.2 10x3/uL (3.5-10.5)
[2023-03-03 21:28] LABS: ALT (SGPT) 40 U/L (8-55); AST (SGOT) 30 U/L (5-34); Alkaline Phosphatase 110 U/L (40-110); Anion Gap 13 mmol/L (10-20); BUN (Urea Nitrogen) 8 mg/dL (8.4-25.7); Bilirubin, Total 0.5 mg/dL (0.2-1.2); Calc. Creatinine Clearance 0 mL/min (70-130); Carbon Dioxide 24 mmol/L (23-31); Chloride 108 mmol/L (98-107); Estimated GFR 86; Globulin 2.1 g/dL (2.4-3.5); Glucose 141 mg/dL (80-115); Potassium 4.2 mmol/L (3.5-5.1); Protein, Total 6.1 g/dL (5.8-8.1); Sodium 141 mmol/L (136-145)
[2023-03-03 21:34] LABS: Troponin I 0.029 ng/mL (< 0.028)
[2023-03-03] MEDS ORDERED: Nitroglycerin 2% Ointment 1 INCH/1 GM Packet ONE (22:29)
[2023-03-03] MEDS ORDERED: Aspirin 81 mg Enteric Coated Tablet ONE (22:30)
[2023-03-03] MEDS ORDERED: Acetaminophen 500 MG TAB ONE (22:30)
[2023-03-03] MEDS ORDERED: Nitroglycerin 0.4 MG TAB (25 Tab Bottle) ONE ×2 (22:31→22:34)
[2023-03-04 00:12] VITALS: BMI 45.6
[2023-03-04 01:19] LABS: Magnesium 1.8 mg/dL (1.6-2.6)
[2023-03-04 01:27] LABS: Troponin I 0.039 ng/mL (< 0.028)
[2023-03-04] MEDS: Nitroglycerin 0.4 MG TAB (25 Tab Bottle) SL PRN ×2 (03:30→15:15)
[2023-03-04] MEDS: Ondansetron PF 4 MG/2 ML Vial IVP PRN ×2 (04:04→15:55)
[2023-03-04 04:27] LABS: #Eosinphils 0.2 10x3/uL (0.0-0.5); #Monocytes 0.6 10x3/uL (0.0-1.1); #Neutrophils 3.3 10x3/uL (1.5-8.4); %Basophils 0.5 % (0.0-2.0); %Eosinophils 2.4 % (0.0-6.0); %Lymphocytes 33.7 % (18.0-47.0); %Monocytes 9.7 % (0.0-10.0); %Neutrophils 53.5 % (40.0-75.0); Hematocrit 41.9 % (38.8-50.0); Mean Corpuscular HGB CONC 33.4 g/dL (32.0-36.0); Mean Corpuscular Hemoglobin 30.4 pg (27.0-33.0); Mean Corpuscular Volume 90.9 fl (81.2-95.1); Platelet Count 158 10x3/uL (150-450); RBC Distribution Width 13.8 % (11.5-14.5); Red Blood Cell (RBC) Count 4.61 10x6/uL (4.32-5.72); White Blood Cell (WBC) Count 6.2 10x3/uL (3.5-10.5)
[2023-03-04 04:43] LABS: Anion Gap 10 mmol/L (10-20); BUN (Urea Nitrogen) 9 mg/dL (8.4-25.7); Calc. Creatinine Clearance 166 mL/min (70-130); Calcium 9.1 mg/dL (7.8-10.44); Carbon Dioxide 26 mmol/L (23-31); Cardiac Risk 2.3 (Less than 4.5); Chloride 108 mmol/L (98-107); Cholesterol 79 mg/dl (< 200 Desired); Estimated GFR 95; Glucose 142 mg/dL (80-115); HDL Cholesterol 34 mg/dL (>60 Neg Risk); LDL Cholesterol, Calculated 32 mg/dL; Potassium 4.3 mmol/L (3.5-5.1); Sodium 140 mmol/L (136-145); Triglycerides 65 mg/dL (Less than 150)
[2023-03-04 04:44] LABS: Troponin I 0.025 ng/mL (< 0.028)
[2023-03-04] MEDS ORDERED: Morphine 2 MG/ML VIAL SLOW IVP SCH (04:45)
[2023-03-04] MEDS ORDERED: Acetaminophen 325 MG TAB PO SCH (04:45)
[2023-03-04] MEDS ORDERED: Nitroglycerin 2% Ointment 1 INCH/1 GM Packet TOP SCH (06:00)
[2023-03-04] MEDS ORDERED: Sacubitril 49 MG/Valsartan 51 MG TABLET PO SCH (09:00)
[2023-03-04] MEDS: Apixaban 2.5 MG TAB PO SCH ×3 (10:05→20:39)
[2023-03-04] MEDS: Metoprolol Tartrate 50 MG TAB PO SCH ×2 (10:08→23:58)
[2023-03-04] MEDS: Tamsulosin HCl 0.4 MG CAP PO SCH (10:09)
[2023-03-04] MEDS: Ezetimibe 10 MG TAB PO SCH (10:09)
[2023-03-04] MEDS: Furosemide 20 MG TAB PO SCH (10:09)
[2023-03-04] MEDS: Spironolactone 25 MG TAB PO SCH (10:10)
[2023-03-04] MEDS: Allopurinol 100 MG TAB PO SCH (10:15)
[2023-03-04] MEDS: Clopidogrel Bisulfate 75 MG TAB PO SCH (10:20)
[2023-03-04] MEDS: Acetaminophen 325 MG TAB PO PRN ×2 (10:22→15:26)
[2023-03-04] MEDS ORDERED: Pregabalin 50 MG CAP PO SCH (12:15)
[2023-03-04] MEDS ORDERED: traMADol HCl 50 MG TAB PO PRN (19:38)
[2023-03-04] MEDS: HYDROcodone/Acetaminophen 5/325 mg Tablet PO PRN (20:38)
[2023-03-04] MEDS ORDERED: Rosuvastatin 20 MG TAB PO SCH (21:00)
[2023-03-04] MEDS: Sacubitril 49 MG/Valsartan 51 MG TABLET PO SCH (23:58)
[2023-03-05] MEDS: HYDROcodone/Acetaminophen 5/325 mg Tablet PO PRN (02:25)
[2023-03-05] MEDS ORDERED: Levothyroxine Sodium 25 MCG TAB PO SCH (06:00)
[2023-03-05] MEDS ORDERED: Digoxin 0.125 MG TAB PO SCH (09:00)
[2023-03-05] MEDS: Furosemide 20 MG TAB PO SCH (11:01)
[2023-03-05] MEDS: Tamsulosin HCl 0.4 MG CAP PO SCH (11:01)
[2023-03-05] MEDS: Clopidogrel Bisulfate 75 MG TAB PO SCH (11:01)
[2023-03-05] MEDS: Ezetimibe 10 MG TAB PO SCH (11:01)
[2023-03-05] MEDS: Allopurinol 100 MG TAB PO SCH (11:01)
[2023-03-05] MEDS: Apixaban 2.5 MG TAB PO SCH (11:02)
[2023-03-05] MEDS: Spironolactone 25 MG TAB PO SCH (11:02)
[2023-03-05] MEDS: Metoprolol Tartrate 50 MG TAB PO SCH (11:03)
[2023-03-05] MEDS: Sacubitril 49 MG/Valsartan 51 MG TABLET PO SCH (11:03)
[2023-03-05 16:35] VITALS: BP 127/58; TEMP 99.3
== END 2023-03-05 16:34 | disposition home or self-care (01) ==
LOC: CSHERS 20:26 → UNDOADMOB 23:31 → CSHTELE 23:31
PROVIDERS: ADMIT Family Medicine; ATTEND Nurse Practitioner Family
DX: R07.9 Chest pain, unspecified (principal); R20.2 Paresthesia of skin; I25.10 Atherosclerotic heart disease of native coronary artery without angina pectoris; I34.0 Nonrheumatic mitral (valve) insufficiency; I11.0 Hypertensive heart disease with heart failure; I50.40 Unspecified combined systolic (congestive) and diastolic (congestive) heart failure; I48.0 Paroxysmal atrial fibrillation; F17.210 Nicotine dependence, cigarettes, uncomplicated; G47.33 Obstructive sleep apnea (adult) (pediatric); E78.5 Hyperlipidemia, unspecified; N40.0 Benign prostatic hyperplasia without lower urinary tract symptoms; M10.9 Gout, unspecified; E66.9 Obesity, unspecified; Z68.42 Body mass index [BMI] 45.0-49.9, adult; Z79.01 Long term (current) use of anticoagulants; Z79.890 Hormone replacement therapy; Z91.041 Radiographic dye allergy status; Z88.8 Allergy status to other drugs, medicaments and biological substances; Z79.899 Other long term (current) drug therapy; Z90.49 Acquired absence of other specified parts of digestive tract; Z90.89 Acquired absence of other organs
CPT/HCPCS: 70551; 71045 ×2; 80048; 80053; 80061; 83735; 84443; 84484 ×3; 85025 ×2; 93005 ×2; 93306; 94660; 96374; 96375; 96376; 99285; G0378 ×2; 36415; 93010; J2272; J2405

== ENCOUNTER 2023-12-24 14:22 | Inpatient (IN) | payer MEDICARE ==
[2023-12-24] MEDS ORDERED: Ondansetron PF 4 MG/2 ML Vial ONE (15:03)
[2023-12-24] MEDS ORDERED: Morphine 4 MG/ML VIAL ONE (15:03)
[2023-12-24 16:30] LABS: #Basophils 0.04 10x3/uL (0.0-0.2); #Eosinphils 0.18 10x3/uL (0.0-0.5); #Monocytes 0.69 10x3/uL (0.0-1.1); #Neutrophils 4.49 10x3/uL (1.5-8.4); %Basophils 0.5 % (0.0-2.0); %Eosinophils 2.4 % (0.0-6.0); %Monocytes 9.2 % (0.0-10.0); %Neutrophils 59.5 % (40.0-75.0); Anion Gap 13 mmol/L (10-20); Carbon Dioxide 23 mmol/L (23-31); Chloride 104 mmol/L (98-107); Hematocrit 44.7 % (38.8-50.0); Hemoglobin 15.9 g/dL (13.5-17.5); Mean Corpuscular HGB CONC 35.6 g/dL (32.0-36.0); Mean Corpuscular Hemoglobin 31.7 pg (27.0-33.0); Mean Corpuscular Volume 89.2 fL (81.2-95.1); Mean Platelet Volume 11.4 fL (7.4-10.4); Platelet Count 174 10x3/uL (150-450); Potassium 4.1 mmol/L (3.5-5.1); RBC Distribution Width 13.2 % (11.5-14.5); Red Blood Cell (RBC) Count 5.01 10x6/uL (4.32-5.72); Sodium 136 mmol/L (136-145); White Blood Cell (WBC) Count 7.5 10x3/uL (3.5-10.5)
[2023-12-24 16:31] LABS: Troponin I 0.033 ng/mL (< 0.028)
[2023-12-24 16:31] LABS: ALT (SGPT) 43 U/L (8-55); AST (SGOT) 39 U/L (5-34); Albumin 3.7 g/dL (3.4-4.8); Alkaline Phosphatase 93 U/L (40-110); BUN (Urea Nitrogen) 9 mg/dL (8.4-25.7); Bilirubin, Total 0.4 mg/dL (0.2-1.2); Calc. Creatinine Clearance 0 mL/min (70-130); Calcium 9.9 mg/dL (7.8-10.44); Estimated GFR 79; Globulin 2.7 g/dL (2.4-3.5); Glucose 160 mg/dL (80-115); Lipase 34 U/L (8-78); Protein, Total 6.4 g/dL (5.8-8.1)
[2023-12-24] MEDS ORDERED: Aspirin Chewable 81 MG TAB ONE (18:11)
[2023-12-24 18:16] LABS: Bilirubin Neg (Negative); Blood, Urine Negative (Negative); Clarity Clear (Clear); Glucose, Urine (Dipstick) Normal (Negative); Ketone, Urine Negative (Negative); Leukocyte Negative (Negative); Nitrite Negative (Negative); Protein, Urine (Dipstick) 15 mg/dl (Neg-Trace); Urobilinogen Normal mg/dL (Less than 2)
[2023-12-24 18:57] LABS: Bacteria/HPF None Seen HPF (None Seen); CAUTI Indications for Culture Pelvic or flank pain; RBC/HPF 0-3 HPF (0-3); Squamous Epithelial 0-3 HPF (0-3); Urine Culture Reflex No No; WBC/HPF 0-3 HPF (0-3)
[2023-12-24] MEDS ORDERED: Ketorolac Tromethamine 30 MG (1 mL) VIAL ONE (20:17)
[2023-12-25] MEDS ORDERED: diphenhydrAMINE 50 MG/ML VIAL ONE (03:01)
[2023-12-25] MEDS ORDERED: methylPREDNISolone Sod Succ 40 MG VIAL ONE (03:02)
[2023-12-25] MEDS ORDERED: Famotidine/PF 20 mg/2ml Vial ONE (03:02)
[2023-12-25 03:13] LABS: #Basophils 0.03 10x3/uL (0.0-0.2); #Eosinphils 0.19 10x3/uL (0.0-0.5); #Monocytes 0.72 10x3/uL (0.0-1.1); #Neutrophils 3.55 10x3/uL (1.5-8.4); %Basophils 0.4 % (0.0-2.0); %Eosinophils 2.8 % (0.0-6.0); %Lymphocytes 33.8 % (18.0-47.0); %Monocytes 10.6 % (0.0-10.0); %Neutrophils 52.1 % (40.0-75.0); Hematocrit 43.7 % (38.8-50.0); Hemoglobin 14.9 g/dL (13.5-17.5); Mean Corpuscular HGB CONC 34.1 g/dL (32.0-36.0); Mean Corpuscular Hemoglobin 31.4 pg (27.0-33.0); Platelet Count 158 10x3/uL (150-450); RBC Distribution Width 13.2 % (11.5-14.5); Red Blood Cell (RBC) Count 4.75 10x6/uL (4.32-5.72); White Blood Cell (WBC) Count 6.8 10x3/uL (3.5-10.5)
[2023-12-25 03:18] LABS: Anion Gap 10 mmol/L (10-20); BUN (Urea Nitrogen) 10 mg/dL (8.4-25.7); Calc. Creatinine Clearance 0 mL/min (70-130); Carbon Dioxide 28 mmol/L (23-31); Chloride 106 mmol/L (98-107); Potassium 4.4 mmol/L (3.5-5.1); Sodium 140 mmol/L (136-145)
[2023-12-25 03:19] LABS: Calcium 9.4 mg/dL (7.8-10.44); Estimated GFR 82; Glucose 126 mg/dL (80-115); Magnesium 1.8 mg/dL (1.6-2.6)
[2023-12-25 03:28] LABS: Troponin I 0.038 ng/mL (< 0.028)
[2023-12-25 08:42] VITALS: BMI 47.1
[2023-12-25] MEDS ORDERED: Iopamidol 300 61% 100 ML VIAL FS ONE (09:45)
[2023-12-25] MEDS: Levothyroxine Sodium 50 MCG TAB PO SCH (10:58)
[2023-12-25] MEDS: Sacubitril 24MG/Valsartan 26 MG TAB PO SCH (10:59)
[2023-12-25] MEDS: Ranolazine ER 500 MG TAB PO SCH (10:59)
[2023-12-25] MEDS: Famotidine 20 MG TAB PO SCH (11:00)
[2023-12-25] MEDS: Sotalol HCl 80 MG TAB PO SCH (11:00)
[2023-12-25] MEDS: Metoprolol Tartrate 50 MG TAB PO SCH (11:00)
[2023-12-25] MEDS: Furosemide 20 MG TAB PO SCH (11:00)
[2023-12-25] MEDS: Ezetimibe 10 MG TAB PO SCH (11:00)
[2023-12-25] MEDS: Apixaban 2.5 MG TAB PO SCH (11:01)
[2023-12-25] MEDS: Clopidogrel Bisulfate 75 MG TAB PO SCH (11:01)
[2023-12-25] MEDS: Allopurinol 100 MG TAB PO SCH (11:01)
[2023-12-25] MEDS: Digoxin 0.125 MG TAB PO SCH (11:02)
[2023-12-25] MEDS: DULoxetine 30 MG CAP PO SCH (11:04)
[2023-12-25] MEDS: Spironolactone 25 MG TAB PO SCH (11:05)
[2023-12-25] MEDS: Lactated Ringer's 1,000 ML IV SCH (11:15)
[2023-12-25] MEDS ORDERED: Nitroglycerin 0.4 MG TAB (25 Tab Bottle) SL PRN (19:07)
[2023-12-25] MEDS: Oxybutynin 5 MG TAB PO SCH (19:58)
[2023-12-25] MEDS: Tamsulosin HCl 0.4 MG CAP PO SCH (19:59)
[2023-12-25] MEDS: Phenazopyridine HCl 95 MG TAB PO SCH (19:59)
[2023-12-25] MEDS ORDERED: Rosuvastatin 20 MG TAB PO SCH (21:00)
[2023-12-25] MEDS: Sacubitril 49 MG/Valsartan 51 MG TABLET PO SCH (21:38)
[2023-12-25] MEDS: Rosuvastatin 20 MG TAB PO SCH (21:39)
[2023-12-26] MEDS: Levothyroxine Sodium 50 MCG TAB PO SCH (06:00)
[2023-12-26] MEDS: Morphine 2 MG/ML VIAL SLOW IVP PRN (06:30)
[2023-12-26] MEDS: Amitriptyline HCl 10 MG TAB PO SCH (08:34)
[2023-12-26] MEDS: Oxybutynin 5 MG TAB PO SCH ×2 (08:34→21:08)
[2023-12-26] MEDS: Ezetimibe 10 MG TAB PO SCH (08:36)
[2023-12-26] MEDS: Phenazopyridine HCl 95 MG TAB PO SCH (08:37)
[2023-12-26] MEDS ORDERED: Allopurinol 100 MG TAB PO SCH (09:00)
[2023-12-26 10:02] LABS: Anion Gap 14 mmol/L (10-20); BUN (Urea Nitrogen) 16 mg/dL (8.4-25.7); Calc. Creatinine Clearance 116 mL/min (70-130); Calcium 9.5 mg/dL (7.6-10.4); Carbon Dioxide 24 mmol/L (23-31); Chloride 104 mmol/L (98-107); Estimated GFR 64; Glucose 330 mg/dL (80-115); Potassium 4.2 mmol/L (3.5-5.1); Sodium 138 mmol/L (136-145)
[2023-12-26] MEDS: Furosemide 20 MG TAB PO SCH (12:17)
[2023-12-26] MEDS: Senokot S 8.6-50 MG TAB PO SCH ×2 (17:49→21:08)
[2023-12-27] MEDS ORDERED: Bisacodyl 10 MG SUPP PR SCH (09:45)
[2023-12-27 12:17] VITALS: BP 102/54; TEMP 98.3
== END 2023-12-27 12:21 | disposition home or self-care (01) | DRG 726 ==
LOC: CSHERS 14:22 → CSHERHOLD 12-25 06:26 → CSHTELE 12-25 08:20 → OBSVTOIN 12-27 09:48
PROVIDERS: ADMIT Family Medicine; ATTEND Family Medicine
PROC: 5A09357 Assistance with Respiratory Ventilation, Less than 24 Consecutive Hours, Continuous Positive Airway Pressure (ICD-10-PCS; principal; 2023-12-27)
DX: N40.1 Benign prostatic hyperplasia with lower urinary tract symptoms (principal); N13.8 Other obstructive and reflux uropathy; I50.42 Chronic combined systolic (congestive) and diastolic (congestive) heart failure; Z68.42 Body mass index [BMI] 45.0-49.9, adult; E03.9 Hypothyroidism, unspecified; G47.33 Obstructive sleep apnea (adult) (pediatric); I48.0 Paroxysmal atrial fibrillation; Z91.041 Radiographic dye allergy status; Z88.8 Allergy status to other drugs, medicaments and biological substances; Z79.899 Other long term (current) drug therapy; Z79.01 Long term (current) use of anticoagulants; I73.9 Peripheral vascular disease, unspecified; I25.2 Old myocardial infarction; K21.9 Gastro-esophageal reflux disease without esophagitis; M10.9 Gout, unspecified; E66.9 Obesity, unspecified; Z90.49 Acquired absence of other specified parts of digestive tract; Z90.89 Acquired absence of other organs; Z98.890 Other specified postprocedural states; I25.10 Atherosclerotic heart disease of native coronary artery without angina pectoris; E78.5 Hyperlipidemia, unspecified; Z86.73 Personal history of transient ischemic attack (TIA), and cerebral infarction without residual deficits
CPT/HCPCS: 36415; 51702; 71045; 74018; 74176; 74177; 80048; 80053; 81001; 83605; 83690; 83735; 84484; 85025; 93005; 93010; 94760; 96374; 96375; 96376; G0378; J1200; J1885; J2270; J2272; J2405; J2920; Q9967; S0028